=== PATIENT | male | born 1990 | race Hispanic/Latino ===

== ENCOUNTER 2021-03-04 19:50 | Emergency (ER) | payer SELFPAY ==
[~2021-03-04] VITALS: Ht 175.3 cm; Wt 104.4 kg
[2021-03-04] MEDS ORDERED: SFHIBU200 PO (19:58)
[2021-03-04] MEDS ORDERED: ACET-683 PO (19:58)
[2021-03-05] MEDS ORDERED: ACETAMINOPHEN 325 MG TAB PO ONE (01:35)
[2021-03-05] MEDS ORDERED: AMOX875T PO (07:39)
[2021-03-05] MEDS ORDERED: LIDO2SOL17 PO (07:39)
[2021-03-05] MEDS ORDERED: AMOXICILLIN 500 MG CAP PO ONE (07:40)
[2021-03-05] MEDS ORDERED: LIDOCAINE VISCOUS 2% SOLN 15ML UDC SS ONE (07:40)
[2021-03-05 07:42] VITALS: BP 133/72
== END 2021-03-05 07:55 | disposition home or self-care (01) ==
LOC: M ED 19:50
DX: J02.0 Streptococcal pharyngitis (principal); F17.200 Nicotine dependence, unspecified, uncomplicated

== ENCOUNTER 2021-03-07 12:45 | Emergency (ER) | payer SELFPAY ==
[~2021-03-07] VITALS: Ht 175.3 cm; Wt 102.9 kg
[~2021-03-07 12:45] MED LIST: ACET-683 PO; AMOX875T PO; LIDO2SOL17 PO; SFHIBU200 PO
[2021-03-07] MEDS ORDERED: ACET-683 PO (12:54)
--- OUTSIDE RECORDS SUMMARY | 2021-03-07 12:56 | CCD ---
Author Author [facility] Address Unknown Phone Unavailable Support Name Relationship Address Phone UE Next Of Kin Unknown Unavailable Re-disclosure Warning The records that you are about to access may contain information from federally-assisted alcohol or drug abuse programs. If such information is present, then the following federally mandated warning applies: This information has been disclosed to you from records protected by federal confidentiality rules (42 CFR part 2). The federal rules prohibit you from making any further disclosure of this information unless further disclosure is expressly permitted by the written consent of the person to whom it pertains or as otherwise permitted by 42 CFR part 2. A general authorization for the release of medical or other information is NOT sufficient for this purpose. The Federal rules restrict any use of the information to criminally investigate or prosecute any alcohol or drug abuse patient.The records that you are about to access may contain highly sensitive health information, the redisclosure of which is protected by Article 27-F of the [facility] Public Health law. If you continue you may have access to information: Regarding HIV / AIDS; Provided by facilities licensed or operated by the [facility] Office of Mental Health; or Provided by the [facility] Office for People With Developmental Disabilities. If such information is present, then the following [facility] mandated warning applies: This information has been disclosed to you from confidential records which are protected by state law. State law prohibits you from making any further disclosure of this information without the specific written consent of the person to whom it pertains, or as otherwise permitted by law. Any unauthorized further disclosure in violation of state law may result in a fine or detention sentence or both. A general authorization for the release of medical or other information is NOT sufficient authorization for further disc losure. Medications No Information Insurance Providers Payer name Policy type / Coverage type Policy ID Covered green party ID Covered green party's relationship to lou Policy Lou Plan Information SELF PAY ONLY [id number] Problems, Conditions, and Diagnoses No Information Surgeries/Procedures No Information Results No Information Social History No Information
[2021-03-07] MEDS ORDERED: dexameTHASONE 20MG/5ML VIAL (J1100 PER 1MG) IV ONE (15:00)
[2021-03-07] MEDS ORDERED: NS 1,000 ML IV ONE (15:00)
[2021-03-07] MEDS ORDERED: AMPICILLIN SOD/SULBACTAM SOD 3 GM in D5W MINI-BAG PLUS 100 ML IV ONE (15:00)
--- OUTSIDE RECORDS SUMMARY | 2021-03-07 15:23 | CCD ---
Author Author [facility] Address Unknown Phone Unavailable Support Name [...] is protected by Article 27-F of the [facility] Public Health law. If you continue you may have access to information: Regarding HIV / AIDS; Provided by facilities licensed or operated by the [facility] Office of Mental Health; or Provided by the [facility] Office for People With Developmental Disabilities. If such information is present, then the following [facility] mandated warning applies: This information has been [...] law may result in a fine or [place] [facility] sentence or both. A general authorization for the release of medical or other information is NOT sufficient authorization for further disc losure. Medications No Information Insurance Providers Payer name Policy type / Coverage type Policy ID Covered republican ID Covered republican's relationship to lou Policy Lou Plan Information SELF PAY ONLY [id number] Problems, Conditions, and Diagnoses No Information Surgeries/Procedures No Information Results No Information Social History No Information
[2021-03-07 16:25] LABS: BASO % 0.4 % (0.0-1.0); EOS % 0.2 % (0.0-3.0); HEMATOCRIT 44.2 % (42.0-52.0); HEMOGLOBIN 15.2 g/dl (13.5-17.5); LYMPH # 2.2 10^3/uL (1.5-5.0); LYMPH % 21.9 % (24.0-44.0); MEAN CORPUSCULAR HEMOGLOBIN 31.8 pg (27.0-33.0); MEAN CORPUSCULAR HGB CONC 34.4 g/dl (32.0-36.5); MEAN CORPUSCULAR VOLUME 92.5 fl (80.0-96.0); MONO # 0.9 10^3/uL (0.0-0.8); MONO % 8.9 % (2.0-8.0); NEUTROPHILS # 6.9 10^3/uL (1.5-8.5); NEUTROPHILS % 68.3 % (36.0-66.0); PLATELET COUNT, AUTOMATED 225 10^3/uL (150-450); RED BLOOD COUNT 4.78 10^6/uL (4.30-6.10); WHITE BLOOD COUNT 10.1 10^3/uL (4.0-10.0)
[2021-03-07 16:50] LABS: ALBUMIN 3.7 GM/DL (3.2-5.2); ALT/SGPT 256 U/L (12-78); BILIRUBIN,DIRECT 0.2 MG/DL (0.0-0.2); BILIRUBIN,TOTAL 0.6 MG/DL (0.2-1.0)
[2021-03-07 16:56] LABS: ERYTHROCYTE SEDIMENTATION RATE 25 mm/hr (0-15)
[2021-03-07 17:01] LABS: MONO SCRN NEGATIVE (NEGATIVE)
[2021-03-07] MEDS ORDERED: ISOVUE-370 76% 100ML VIAL As Ordered ONE (17:06)
--- NOTE | 2021-03-07 17:58 | REPVR ---
PROCEDURE INFORMATION: Exam: CT Neck With Contrast Exam date and time: 03/07/2021 5:10 PM Age: 30 years old Clinical indication: Abscess, tonsil; Additional info: ? Tonsil abscess on left TECHNIQUE: Imaging protocol: Computed tomography images of the neck with contrast. Radiation optimization: All CT scans at this facility use at least one of these dose optimization techniques: automated exposure control; mA and/or kV adjustment per patient size (includes targeted exams where dose is matched to clinical indication); or iterative reconstruction. Contrast material: ISOVUE 370; Contrast volume: 75 ml; Contrast route: INTRAVENOUS (IV); COMPARISON: No relevant prior studies available. FINDINGS: Orbital cavity: Chronic left enucleation. Right globe is intact. Pharynx: Symmetric prominence of the bilateral palatine tonsils. No evidence of peritonsillar abscess. Larynx: Unremarkable. Normal epiglottis. Retropharyngeal space: Unremarkable. Submandibular/Parotid glands: Unremarkable. Thyroid: Unremarkable. No enlarged or calcified nodules. Lymph nodes: Enlarged bilateral cervical chain lymph nodes, likely reactive. Trachea: Unremarkable. Lungs: Unremarkable as visualized. Bones/joints: No acute osseus lesions or fractures. Soft tissues: Unremarkable. No significant soft tissue swelling. IMPRESSION: Sequela of findings concerning for tonsillitis/pharyngitis, without evidence of peritonsillar abscess. Electronically signed by: Ryan Crane On 03/07/2021 17:57:20 PM
[2021-03-07] MEDS ORDERED: AUGM875T28 PO (18:10)
[2021-03-07] MEDS ORDERED: VALA1TAB5 PO (18:10)
[2021-03-07] MEDS ORDERED: PRED20TA PO (18:14)
[2021-03-07 18:40] VITALS: BP 130/88
[2021-03-10 14:10] LABS: EBV VIRAL CAPSID AG IgM <36.0 U/mL (0.0-35.9)
== END 2021-03-07 18:34 | disposition home or self-care (01) ==
LOC: M ED 15:19
DX: J03.00 Acute streptococcal tonsillitis, unspecified (principal); B00.1 Herpesviral vesicular dermatitis
CPT/HCPCS: 70491; 80047; 80076; 83605; 85025; 85652; 86140; 86308; 86664; 86665; 87040; 87529; 96361; 96365; 96366; 96375; 99283; J1100; Q9967